=== PATIENT | male | born 1960 | race Caucasian/White ===

== ENCOUNTER → 2016-04-17 | Outpatient (CLI) | payer OTHER ==
[~2016-04-17] MED LIST: ACET325T96 PO; ALBUAER INH; CARB1TAB38 PO; CARB200T PO; CLR10 PO; DEXTSYP41 PO; DIVA125T18 PO; DIVA500T59 PO; FLUO40CA8 PO; FURO-85 PO; IBUP-1450 PO; IMD/2 PO; LEVO75TA5 PO; LTHSR/300 PO; MIRT30TA2 PO; PHEN1TAB86 PO; PHEN64.8 PO; POLY335025 PO; RISP1TAB68 PO; SALI0.6517 NAE; SIMV20TA5 PO; ZNTT/150 PO
[2016-04-17 16:56] LABS: BASO % 0.3 %; BASO ABS # 0.02 K/uL (0-0.2); COMPLETE YES; EOS % 1.4 %; HEMATOCRIT 45.1 % (42-52); IG% 0.2 %; LYMPH % 33.3 %; LYMPH ABS # 1.97 K/uL (1.2-3.4); MEAN CELL VOLUME 95.6 fL (80-100); MEAN CORPUSCULAR HEMOGLOBIN 32.2 pg (25-34); MEAN CORPUSCULAR HGB CONC 33.7 g/dl (32-36); MEAN PLATELET VOLUME 10.5 fL (7.4-10.4); NEUT % 55.8 %; PLATELET COUNT 244 K/uL (130-400); RED BLOOD COUNT 4.72 M/uL (4.7-6.1); WHITE BLOOD COUNT 5.92 K/uL (4.8-10.8)
[2016-04-17 17:16] LABS: ALT/SGPT 26 U/L (12-78); AST/SGOT 10 U/L (15-37); BLOOD UREA NITROGEN 14 mg/dl (7-18); BUN/CREATININE RATIO 14.3 (10-20); CALCIUM 9.2 mg/dl (8.5-10.1); CARBON DIOXIDE 27 mmol/L (21-32); CHLORIDE 105 mmol/L (98-107); CHOLESTEROL 187 mg/dl (0-200); CREATININE 0.97 mg/dl (0.60-1.40); GLUCOSE 101 mg/dl (70-99); POTASSIUM 3.7 mmol/L (3.5-5.1); SODIUM 142 mmol/L (136-145)
[2016-04-17 17:17] LABS: PHENOBARBITAL 33.6 mcg/mL (15.0-40.0)
[2016-04-17 17:26] LABS: ALB/GLOB RATIO 1.1 (0.9-2); ALKALINE PHOSPHATASE 75 U/L (45-117); CHOLESTEROL/HDL RATIO 2.6; HDL CHOLESTEROL 72 mg/dl; LDL CHOLESTEROL CALCULATED 67 mg/dl; TRIGLYCERIDES 239 mg/dl (0-150); VERY LOW DENSITY LIPOPROT CALC 48 mg/dl
== END | disposition home or self-care (01) ==
LOC: C.LABBFT 14:58
PROVIDERS: ATTEND Internal Medicine
DX: R56.9 Unspecified convulsions (principal)

== ENCOUNTER 2016-05-16 20:37 | Emergency (ER) | payer OTHER ==
[~2016-05-16] VITALS: Ht 170.2 cm; Wt 91.5 kg
[~2016-05-16 20:37] MED LIST changes: -CARB1TAB38 PO; -PHEN64.8 PO
[2016-05-16 20:46] VITALS: TEMP 37.5; Ht 170.2 cm; Wt 91.5 kg
[2016-05-16] MEDS ORDERED: CARB1TAB38 PO (21:29)
--- NOTE | 2016-05-16 22:30 | EMERGENCY ROOM VISIT NOTE ---
History Report prepared by Lory: Lai Powers Under the Supervision of: Dr. eDlfin Marrero M.D. First contact with patient: 22:17 Chief Complaint: FALL Stated Complaint: FALL History of Present Illness The patient is a 56 year old male who presents to the Emergency Room with complaints of constant back pain due to a fall beginning just prior to arrival. He currently rates his discomfort as a 3/10 in severity. As per care worker, the patient is a client of [facility]. The care worker states the patient has a seizure disorder, but the patient has not had a known seizure in their vicinity. He states the patient is on seizure medication. The care worker notes the patient was playing [employer], when he fell backwards and hit his head on an end table. He states the patient did not lose consciousness but was not conversing following the incident. The patient denies chest pain, abdominal pain, and leg pain. Source of History: patient Onset: just prior to arrival Position: back Symptom Intensity: 3/10 Timing: constant Associated Symptoms: + back pain, No LOC, No abdominal pain, No chest pain Review of Systems All systems have been listed, reviewed, and are negative other than those previously mentioned. Please see Additional Medical History Sheet. Past Medical & Surgical Medical Problems: (1) Chest pain (2) No pertinent past medical history (3) Seizures Family History No pertinent family history Social History Smoking Status: Never Smoker Marital Status: single Housing Status: other Occupation Status: disabled Current/Historical Medications Scheduled Carbamazepine Extended Release (Tegretol Xr), 400 MG PO TID Divalproex Sodium (Depakote), 125 MG PO BID Divalproex Sodium (Depakote), 500 TAB PO BID Fluoxetine (Prozac), 40 MG PO QAM Furosemide (Lasix), 10 TAB PO DAILY Levothyroxine Sodium (Levothyroxine Sodium), 75 MCG PO DAILY [place] Carbonate ([place] Carbonate), 300 MG PO BID Loratadine (Claritin), 10 MG PO DAILY Mirtazapine Soltab (Remeron Soltab), 30 MG PO HS Phenobarbital (Phenobarbital), 64.8 MG PO BID Ranitidine (Zantac), 150 MG PO BID Saline (Deep Sea Nasal [place]), 2 SPRAY BECKY DAILY Simvastatin (Zocor), 20 MG PO HS Miscellaneous Medications Risperidone (Risperdal), 1 MG PO Allergies Coded Allergies: Grapefruit (Unverified Allergy, Unknown, CONTRAINDICATED WITH MEDICATION, 05/16/16) POLLEN (Verified Allergy, Unknown, SEASONAL ALLERGIES, 05/16/16) Physical Exam Vital Signs Date Time Temp Pulse Resp B/P Pulse Ox O2 Delivery O2 Flow Rate FiO2 05/16/16 23:40 81 20 139/86 95 05/16/16 22:04 78 20 136/84 96 Room Air 05/16/16 20:51 91 18 156/100 93 Room Air 93 147/98 98 153/97 05/16/16 20:46 37.5 98 18 153/97 93 Room Air Physical Exam GENERAL: Patient awake, alert, an in no distress. Patient follows commands. Patient does not appear toxic. Patient is adequately hydrated and well- nourished. SKIN: No erythema, pallor, cyanosis or rash HEENT: Normal head, normocephalic, no tyson signs, no raccoon sign. Pupils equal, reactive to light and accommodation. Ears normal. Oral cavity and posterior pharynx appear normal. Neck: Supple, nontender. LUNGS: Clear to auscultation. No wheezes, no rales, no rhonchi. HEART: No murmurs. No gallops. No rubs ABDOMEN: No masses, no rebound, no hepatomegaly or splenomegaly. BACK: Vague mid thoracic tenderness but no bruising noted. No step-offs. EXTREMITIES: No signs of trauma. No pedal or pretibial edema. No calf or thigh tenderness. NEUROLOGIC: Cranial nerves II-XII within normal limits. No gross motor sensory function deficits. Medical Decision & Procedures ER Provider Diagnostic Interpretation: CT HEAD: No intracranial hemorrhage or mass effect. Redemonstration of subcutaneous nodular density overlying the right periorbital region. Given history of trauma, may represent recurring hematoma. May represent an epidermoid cyst. Correlate with physical exam findings. Radiologist: Jake Bernabe M.D. Study ready at 23:11 and initial results transmitted at 23: 17. Laboratory Results 05/16/16 22:35 05/16/16 22:35 Test 05/16/16 22:35 Red Blood Count 4.40 M/uL (4.7-6.1) Mean Corpuscular Volume 92.5 fL (80-100) Mean Corpuscular Hemoglobin 31.6 pg (25-34) Mean Corpuscular Hemoglobin Concent 34.2 g/dl (32-36) RDW Standard Deviation 45.2 fL (36.4-46.3) RDW Coefficient of Variation 13.3 % (11.5-14.5) Mean Platelet Volume 9.3 fL (7.4-10.4) Anion Gap 8.0 mmol/L (3-11) Est Creatinine Clear Calc Drug Dose 93.8 ml/min Estimated GFR () 102.7 Estimated GFR (Non- 88.6 BUN/Creatinine Ratio 16.4 (10-20) Calcium Level 8.5 mg/dl (8.5-10.1) Valproic Acid (Depakene) Level 71 mcg/ml (50-100) Carbamazepine (Tegretol) Level 5.6 mcg/ml (4-12) [place] Level 0.6 mMOL/L (0.6-1.2) Laboratory results as stated above per my review. ECG Indication: other (fall) Rate (beats per minute): 80 Rhythm: normal sinus Findings: no acute ischemic change, no ectopy ED Course 2219: Past medical records reviewed. The patient was evaluated in room B4A. A complete history and physical examination was performed. 2335: Upon reevaluation, the patient appeared to have improvement of his symptoms. I discussed today's findings with the patient's care worker. He verbalized agreement of the treatment plan. The patient was discharged home. Medical Decision Nurses notes reviewed. Medical history sheet reviewed. Differential diagnosis includes but is not limited to: closed head injury, seizure, metabolic disorder , back contusion. There was no witnessed seizure. But that remains in the differential. Multiple labs and imaging were obtained. Please see above. The patient's CT does not reveal an acute bleed. The questionable hematoma over his right eye is not from any recent trauma. Patient's medication levels appear to be therapeutic. I believe the patient can safely be discharged. Impression Primary Impression: Fall Additional Impressions: Closed head injury Back contusion Scribe Attestation The scribe's documentation has been prepared under my direction and personally reviewed by me in its entirety. I confirm that the note above accurately reflects all work, treatment, procedures, and medical decision making performed by me. Departure Information Dispostion Home / Self-Care Referrals Earl García M.D. (PCP) Forms HOME CARE DOCUMENTATION FORM, IMPORTANT VISIT INFORMATION Patient Instructions My [facility] Additional Instructions Continue all of your current medications as prescribed. Problem Qualifiers
[2016-05-16 22:50] LABS: HEMATOCRIT 40.7 % (42-52); MEAN CELL VOLUME 92.5 fL (80-100); MEAN CORPUSCULAR HEMOGLOBIN 31.6 pg (25-34); MEAN CORPUSCULAR HGB CONC 34.2 g/dl (32-36); MEAN PLATELET VOLUME 9.3 fL (7.4-10.4); PLATELET COUNT 196 K/uL (130-400); WHITE BLOOD COUNT 11.23 K/uL (4.8-10.8)
[2016-05-16 23:13] LABS: BUN/CREATININE RATIO 16.4 (10-20); CALCIUM 8.5 mg/dl (8.5-10.1); CREATININE 0.96 mg/dl (0.60-1.40); POTASSIUM 3.9 mmol/L (3.5-5.1)
[2016-05-16 23:19] LABS: LITHIUM 0.6 mMOL/L (0.6-1.2)
[2016-05-16 23:40] VITALS: BP 139/86; PULSE 81; O2SAT 95
--- NOTE | 2016-05-17 06:32 | DIAGNOSTIC IMAGING REPORT ---
HEAD CT NONCONTRAST CT DOSE: 601.98 mGy.cm HISTORY: Trauma mental status change TECHNIQUE: Multiaxial CT images of the head were performed without the use of intravenous contrast. Comparison: 01/23/2016 Findings: The paranasal sinuses and mastoid air cells are clear. The calvarium and skull base are intact. The ventricles and sulci are within normal limits. There is no mass, hematoma, midline shift, or acute infarct. Impression: No acute intracranial abnormality. Electronically signed by: Jimmie Alvarez M.D. 05/17/2016 6:31 AM Dictated Date/Time: 05/17/2016 6:30 AM
== END 2016-05-16 23:42 | disposition home or self-care (01) ==
LOC: C.EDB 20:37 → EDBD 20:37 → C.EDB 23:42
DX: S09.90XA Unspecified injury of head, initial encounter (principal); S20.229A Contusion of unspecified back wall of thorax, initial encounter; R56.9 Unspecified convulsions; Z79.899 Other long term (current) drug therapy; W18.39XA Other fall on same level, initial encounter; Y93.C2 Activity, hand held interactive electronic device; Y99.8 Other external cause status

== ENCOUNTER → 2016-05-20 | Outpatient (CLI) | payer OTHER ==
[~2016-05-20] MED LIST changes: -ACET325T96 PO; -ALBUAER INH; +CARB1TAB38 PO; -CARB200T PO; -DEXTSYP41 PO; -IBUP-1450 PO; -IMD/2 PO; +PHEN64.8 PO; -POLY335025 PO
== END | disposition home or self-care (01) ==
LOC: C.LABBFT 09:05
PROVIDERS: ATTEND Internal Medicine
DX: R56.9 Unspecified convulsions (principal)

== ENCOUNTER → 2016-08-07 | Outpatient (CLI) | payer OTHER ==
[~2016-08-07] MED LIST changes: -CARB1TAB38 PO; +CARB400T3 PO
== END | disposition home or self-care (01) ==
LOC: C.LABBFT 11:59
PROVIDERS: ATTEND Physician Assistant Medical
DX: Z12.5 Encounter for screening for malignant neoplasm of prostate (principal)

== ENCOUNTER 2016-12-24 02:07 | Emergency (ER) | payer OTHER ==
[~2016-12-24] VITALS: Ht 170.2 cm; Wt 90.3 kg
[~2016-12-24 02:07] MED LIST changes: +CARB1TAB38 PO; -CARB400T3 PO; -PHEN64.8 PO
[2016-12-24 02:08] VITALS: TEMP 36.5; Ht 170.2 cm; Wt 90.3 kg
--- NOTE | 2016-12-24 02:28 | EMERGENCY ROOM VISIT NOTE ---
History Report prepared by Lory: Gary Cotter Under the Supervision of: Dr. Anel Tolnetino M.D. First contact with patient: 02:17 Chief Complaint: FALL Stated Complaint: FALL/L-KNEE PAIN History of Present Illness The patient is a 56 year old male who presents to the Emergency Room after a fall that occurred prior to arrival. The patient states he was using the restroom, and he slipped on his sock on his way back to bed. He reports he fell backward and hit his back, head, and left leg on the floor. The patient notes he was not able to get up on his own. He states once he was helped up, he was able to walk again. The patient reports he has pain in his back and mild knee pain. He denies being on blood thinners, loss of consciousness, and vomiting. The patient notes he has a history of seizures. There was no witnessed seizure activity or LOC by report. The [employer] employee states the patient was coming out of the bathroom when he fell. The pt previously reported to the caregiver that he was lightheaded and hit his hip during the incident. Pt reportedly had a numb leg initially, but was able to ambulate with some help. No loss of bowel or bladder fx. Source of History: patient Onset: prior to arrival Position: other (global) Quality: other (fall) Timing: resolved Associated Symptoms: + back pain, No LOC, No vomiting Note: Associated symptoms: mild knee pain, lightheadedness Review of Systems See HPI for pertinent positives & negatives. A total of 10 systems reviewed and were otherwise negative. Past Medical & Surgical Medical Problems: (1) Chest pain (2) No pertinent past medical history (3) Seizures Family History No pertinent family history Social History Smoking Status: Never Smoker Marital Status: single Housing Status: other Occupation Status: disabled Current/Historical Medications Scheduled Carbamazepine Extended Release (Tegretol Xr), 400 MG PO BID Divalproex Sodium (Depakote), 125 MG PO BID Divalproex Sodium (Depakote), 500 TAB PO BID Fluoxetine (Prozac), 40 MG PO QAM Furosemide (Lasix), 10 TAB PO DAILY Levothyroxine Sodium (Levothyroxine Sodium), 75 MCG PO DAILY [place] Carbonate (Boaz Carbonate), 300 MG PO BID Loratadine (Claritin), 10 MG PO DAILY Mirtazapine Soltab (Remeron Soltab), 30 MG PO HS Phenobarbital (Phenobarbital), 64.8 MG PO BID Ranitidine (Zantac), 150 MG PO BID Risperidone (Risperdal), 1 MG PO HS Saline (Deep Sea Nasal [place]), 2 SPRAY BECKY DAILY Simvastatin (Zocor), 20 MG PO HS Allergies Coded Allergies: Grapefruit (Unverified Allergy, Unknown, CONTRAINDICATED WITH MEDICATION, 12/24/16) POLLEN (Verified Allergy, Unknown, SEASONAL ALLERGIES, 12/24/16) Physical Exam Vital Signs Date Time Temp Pulse Resp B/P (MAP) Pulse Ox O2 Delivery O2 Flow Rate FiO2 12/24/16 03:39 87 20 159/89 97 Room Air 12/24/16 02:08 36.5 87 20 150/97 95 Room Air Physical Exam Vital signs reviewed. General: Well-appearing 56 year old male, in no significant distress. HEENT: No scleral icterus, PERRLA, neck supple. Atraumatic. Cardiovascular: Regular rate and rhythm, no extra sounds. Pulmonary: Clear to auscultation bilaterally, normal work of breathing. Abdomen: Soft, nontender, nondistended, positive bowel sounds. Musculoskeletal: Atraumatic, no peripheral edema. Negative straight leg raise bilaterally. Left lower extremity - Degenerative changes to the knee, non- tender with ROM, no significant ecchymosis or swelling. Back - No lumbar, thoracic, or cervical spine tenderness. No step off or deformity. Pelvis - No pain to strain. Neurologic: Patient awake alert and oriented x 3, full strength in all 4 extremities. Cranial nerves 2 through 12 grossly intact. Skin: Warm, dry, no rash Medical Decision & Procedures ER Provider Diagnostic Interpretation: Radiology results as stated below per my review and radiologist interpretation: Left knee x-ray: no acute fracture, no dislocation, significant degenerative changes. CT HEAD: Comparison: 05/16/16 Small right frontal scalp soft tissue hematoma. No acute intracranial abnormality. No acute calvarial abnormality. Radiologist: Cheo Kirkpatrick MD Study ready at 0311 and initial results transmitted at 0324. ED Course 0236: Past medical records reviewed. The patient was evaluated in room B07. A complete history and physical examination was performed. 0419: Upon reevaluation, the patient appeared to have improvement of his symptoms. I discussed findings with him. He verbalized agreement of the treatment plan. The patient was discharged home. Medical Decision Differential diagnosis: Intracranial injury, cervical spine injury, intrathoracic injury, intra- abdominal injury, musculoskeletal injury. This patient was evaluated and appeared to be in no significant distress. Physical examination is fairly unrevealing. The left knee was mildly tender on exam. There is no evidence of trauma. X-ray of the left knee reveals significant degenerative changes without evidence of acute fracture or dislocation. CT scan of the head was performed due to the inconsistencies in the patient's story and his complaint of posterior head pain. This study is also negative. The patient was advised to use Tylenol as needed for pain. He will follow-up with his physician for reevaluation of the head injury. They will return the patient to the ER for worsening of symptoms or any medical concerns. Head Trauma GCS Score: 15 Impression Primary Impression: Head injury Additional Impression: Fall Scribe Attestation The scribe's documentation has been prepared under my direction and personally reviewed by me in its entirety. I confirm that the note above accurately reflects all work, treatment, procedures, and medical decision making performed by me. Departure Information Dispostion Home / Self-Care Referrals Earl García M.D. (PCP) Forms HOME CARE DOCUMENTATION FORM, IMPORTANT VISIT INFORMATION Patient Instructions ED Head Injury Closed, My [facility] Additional Instructions Diagnosis: Fall, head injury Tylenol 650 mg every 6 hours as needed for pain. Watch for signs of head injury including altered mental status and vomiting. Return to the emergency department immediately for any of the symptoms. Please refer to the head injury handout. Follow-up with your physician for reevaluation within the next week. Return to the ER for worsening of symptoms or any medical concerns. Problem Qualifiers
[2016-12-24] MEDS ORDERED: PHEN64.8 PO (03:20)
[2016-12-24 03:39] VITALS: BP 159/89; PULSE 87; O2SAT 97
--- NOTE | 2016-12-24 06:35 | DIAGNOSTIC IMAGING REPORT ---
HEAD WITHOUT CONTRAST (CT) CLINICAL HISTORY: 56 years-old Male with CHI. Acute head injury. TECHNIQUE: Multiple axial CT images of the head were obtained without contrast. A dose lowering technique was utilized adhering to the principles of ALARA. CT DOSE: 537.48 mGy.cm COMPARISON: CT head 05/16/2016. FINDINGS: No acute intracranial hemorrhage, midline shift, mass, large territorial ischemia or abnormal extra-axial collection. There is mild atrophy. The calvarium is intact. The paranasal sinuses, mastoid air cells, and middle ear cavities are clear. Mild periorbital soft tissue swelling is noted with a 1.4 x 2.1 right supraorbital soft tissue hematoma. IMPRESSION: 1. No acute intracranial abnormality. 2. Mild periorbital soft tissue swelling with small supraorbital hematoma. The above report was generated using voice recognition software. It may contain grammatical, syntax or spelling errors. Electronically signed by: Vinnie Solano M.D. 12/24/2016 6:34 AM Dictated Date/Time: 12/24/2016 6:30 AM
--- NOTE | 2016-12-24 06:46 | DIAGNOSTIC IMAGING REPORT ---
L KNEE 1 OR 2 VIEWS ROUTINE HISTORY: 56 years-old Male Left knee pain, fall acute left knee pain status post fall COMPARISON: Left knee radiographs 01/23/2016 TECHNIQUE: 2 views of the left knee FINDINGS: Bones are osteopenic. Extensive marginal proliferative osteophytosis is seen about the knee, greatest involving the distal femur, patella and patellofemoral joint. Severe tricompartmental osteoarthritis is noted with progression within the medial and lateral compartments from prior study. 2.9 x 1.6 cm calcified structure within the suprapatellar tissues suggest loose body. Moderate joint effusion. There is no acute fracture or dislocation. IMPRESSION: 1. No acute fracture or dislocation. 2. Progressive severe tricompartmental osteoarthritis. 2.9 cm calcified structure within the suprapatellar tissues suggests intra-articular loose body. 3. Moderate joint effusion. 4. Osteopenia. The above report was generated using voice recognition software. It may contain grammatical, syntax or spelling errors. Electronically signed by: Vinnie Solano M.D. 12/24/2016 6:45 AM Dictated Date/Time: 12/24/2016 6:41 AM
== END 2016-12-24 04:05 | disposition home or self-care (01) ==
LOC: EDBD 02:07 → C.EDB 02:09
DX: S09.90XA Unspecified injury of head, initial encounter (principal); W01.198A Fall on same level from slipping, tripping and stumbling with subsequent striking against other object, initial encounter; G40.909 Epilepsy, unspecified, not intractable, without status epilepticus; Z79.899 Other long term (current) drug therapy

== ENCOUNTER → 2017-03-07 | Outpatient (CLI) | payer OTHER ==
[~2017-03-07] MED LIST changes: -CARB1TAB38 PO; +CARB400T3 PO; -PHEN1TAB86 PO; +PHEN64.8 PO
[2017-03-07 12:19] LABS: BASO % 0.4 %; BASO ABS # 0.03 K/uL (0-0.2); COMPLETE YES; HEMATOCRIT 45.7 % (42-52); IG% 0.1 %; LYMPH % 35.9 %; LYMPH ABS # 3.05 K/uL (1.2-3.4); MEAN CELL VOLUME 95.6 fL (80-100); MEAN CORPUSCULAR HEMOGLOBIN 32.2 pg (25-34); MEAN CORPUSCULAR HGB CONC 33.7 g/dl (32-36); MEAN PLATELET VOLUME 9.6 fL (7.4-10.4); MONO % 9.5 %; NEUT % 52.1 %; PLATELET COUNT 253 K/uL (130-400); RED BLOOD COUNT 4.78 M/uL (4.7-6.1)
[2017-03-07 12:44] LABS: ALKALINE PHOSPHATASE 82 U/L (45-117); ALT/SGPT 23 U/L (12-78); AST/SGOT 10 U/L (15-37); BLOOD UREA NITROGEN 13 mg/dl (7-18); BUN/CREATININE RATIO 12.7 (10-20); CALCIUM 9.1 mg/dl (8.5-10.1); CARBON DIOXIDE 29 mmol/L (21-32); CHLORIDE 103 mmol/L (98-107); FERRITIN 62.4 ng/ml (8.0-388.0); GLUCOSE 91 mg/dl (70-99); POTASSIUM 4.9 mmol/L (3.5-5.1); SODIUM 137 mmol/L (136-145)
[2017-03-07 12:49] LABS: ALB/GLOB RATIO 0.8 (0.9-2); TOTAL IRON BINDING CAPACITY 427 mcg/dl (250-450)
== END | disposition home or self-care (01) ==
LOC: C.LABBFT 11:02
PROVIDERS: ATTEND Physician Assistant Medical
DX: F50.89 Other specified eating disorder (principal)

== ENCOUNTER → 2017-03-25 | Outpatient (CLI) | payer OTHER ==
[~2017-03-25] MED LIST changes: +RANI150T85 PO; -ZNTT/150 PO
== END | disposition home or self-care (01) ==
LOC: C.LABBFT 15:03
PROVIDERS: ATTEND Physician Assistant Medical
DX: R76.9 Abnormal immunological finding in serum, unspecified (principal); E03.9 Hypothyroidism, unspecified

== ENCOUNTER → 2017-04-04 | Outpatient (CLI) | payer OTHER ==
[~2017-04-04] MED LIST changes: -RANI150T85 PO; +ZNTT/150 PO
== END | disposition home or self-care (01) ==
LOC: C.LAB1850 14:41
PROVIDERS: ATTEND Physician Assistant Medical
DX: R76.9 Abnormal immunological finding in serum, unspecified (principal)

== ENCOUNTER → 2017-05-21 | Outpatient (CLI) | payer OTHER ==
[~2017-05-21] MED LIST changes: +RANI150T85 PO; -ZNTT/150 PO
[2017-05-21 09:32] LABS: BASO % 0.3 %; BASO ABS # 0.02 K/uL (0-0.2); EOS % 3.1 %; EOS ABS # 0.18 K/uL (0-0.5); HEMATOCRIT 42.3 % (42-52); HEMOGLOBIN 14.1 g/dL (14.0-18.0); LYMPH % 33.7 %; LYMPH ABS # 1.98 K/uL (1.2-3.4); MEAN CELL VOLUME 94.2 fL (80-100); MEAN CORPUSCULAR HEMOGLOBIN 31.4 pg (25-34); MEAN CORPUSCULAR HGB CONC 33.3 g/dl (32-36); MEAN PLATELET VOLUME 9.4 fL (7.4-10.4); MONO % 10.9 %; MONO ABS # 0.64 K/uL (0.11-0.59); NEUT ABS # 3.05 K/uL (1.4-6.5); PLATELET COUNT 245 K/uL (130-400); RED CELL DISTRIBUTION WIDTH CV 13.2 % (11.5-14.5); RED CELL DISTRIBUTION WIDTH SD 45.8 fL (36.4-46.3); WHITE BLOOD COUNT 5.87 K/uL (4.8-10.8)
== END | disposition home or self-care (01) ==
LOC: C.LAB1850 08:32
PROVIDERS: ATTEND Psychiatry & Neurology Psychiatry
DX: F31.81 Bipolar II disorder (principal)

== ENCOUNTER 2017-06-04 20:15 | Emergency (ER) | payer OTHER ==
[~2017-06-04] VITALS: Ht 170.2 cm; Wt 87.4 kg
[2017-06-04 20:19] VITALS: Ht 170.2 cm; Wt 87.4 kg
[2017-06-04 21:23] LABS: BASO % 0.3 %; BASO ABS # 0.02 K/uL (0-0.2); EOS % 1.7 %; EOS ABS # 0.12 K/uL (0-0.5); HEMATOCRIT 42.5 % (42-52); HEMOGLOBIN 14.8 g/dL (14.0-18.0); IG# 0.01 K/uL (0.00-0.02); LYMPH % 24.3 %; LYMPH ABS # 1.73 K/uL (1.2-3.4); MEAN CELL VOLUME 91.6 fL (80-100); MEAN CORPUSCULAR HEMOGLOBIN 31.9 pg (25-34); MEAN CORPUSCULAR HGB CONC 34.8 g/dl (32-36); MEAN PLATELET VOLUME 8.7 fL (7.4-10.4); MONO ABS # 0.57 K/uL (0.11-0.59); NEUT % 65.6 %; NEUT ABS # 4.68 K/uL (1.4-6.5); PLATELET COUNT 234 K/uL (130-400); RED CELL DISTRIBUTION WIDTH CV 13.2 % (11.5-14.5); RED CELL DISTRIBUTION WIDTH SD 44.1 fL (36.4-46.3); WHITE BLOOD COUNT 7.13 K/uL (4.8-10.8)
--- NOTE | 2017-06-04 21:26 | DIAGNOSTIC IMAGING REPORT ---
CT SCAN OF THE BRAIN WITHOUT IV CONTRAST CLINICAL HISTORY: Seizure. COMPARISON STUDY: CT of the brain dated 12/24/2016 and 01/23/2016. TECHNIQUE: Unenhanced axial CT scan of the brain is performed from the vertex to the skull base. A dose lowering technique was utilized adhering to the principles of ALARA. CT DOSE: 537.48 mGy.cm FINDINGS: Brain parenchyma: The brain parenchyma is normal in appearance. There is no hemorrhage, mass effect, or evidence of acute territorial ischemia by CT criteria. Allen-white matter is preserved. No extra-axial fluid collection is seen. Ventricles, sulci, cisterns: Normal in configuration. Intracranial vasculature: The visualized intracranial vasculature at the skull base is normal in appearance. Calvarium: There is no depressed calvarial fracture. Sinuses and mastoids: The visualized paranasal sinuses are clear. The mastoid air cells are well pneumatized. Orbits: The bony orbits are grossly intact. Soft tissues: A 1.5 cm low-attenuation nodule in the right periorbital/suprarenal soft tissues is unchanged from previous. IMPRESSION: 1. There is no hemorrhage, mass effect, or evidence of acute territorial ischemia by CT criteria. 2. An ovoid right periorbital/supraorbital soft tissue nodule is unchanged dating back to 2016 and may represent a sebaceous cyst. Clinical correlation will be essential. Electronically signed by: Richard Goldstein M.D. 06/04/2017 9:25 PM Dictated Date/Time: 06/04/2017 9:22 PM
[2017-06-04 21:44] LABS: ALT/SGPT 23 U/L (12-78); BLOOD UREA NITROGEN 12 mg/dl (7-18); CALCIUM 9.3 mg/dl (8.5-10.1); CARBON DIOXIDE 29 mmol/L (21-32); CREATININE 0.87 mg/dl (0.60-1.40); GLUCOSE 89 mg/dl (70-99); LIPASE 281 U/L (73-393); SODIUM 136 mmol/L (136-145)
[2017-06-04 21:47] LABS: ALKALINE PHOSPHATASE 109 U/L (45-117); AST/SGOT 12 U/L (15-37); TOTAL PROTEIN 8.2 gm/dl (6.4-8.2)
--- NOTE | 2017-06-04 21:52 | DIAGNOSTIC IMAGING REPORT ---
SINGLE VIEW CHEST CLINICAL HISTORY: Atypical chest pain. FINDINGS: An AP, portable, upright chest radiograph is compared to study dated 12/05/2015. The examination is degraded by portable technique and patient rotation. The cardiomediastinal silhouette is unremarkable. There are bibasilar airspace opacities and mild chronic elevation of the right hemidiaphragm. No large pleural effusion is identified. No pneumothorax is seen. The bony thorax is grossly intact. IMPRESSION: Bibasilar airspace opacities likely represent atelectasis. Correlate clinically for evidence of superimposed pneumonia. Electronically signed by: Richard Goldstein M.D. 06/04/2017 9:51 PM Dictated Date/Time: 06/04/2017 9:50 PM
[2017-06-04 22:23] VITALS: BP 122/71; PULSE 73; O2SAT 97
--- NOTE | 2017-06-04 23:01 | EMERGENCY ROOM VISIT NOTE ---
History Report prepared by Lory: Erna Triplett Under the Supervision of: Dr. Christopher Figueroa M.D. First contact with patient: 20:45 Chief Complaint: ALTERED MENTAL STATUS Stated Complaint: ALTERED MENTAL STATUS/POSSIBLE SEIZURE History of Present Illness The patient is a 57 year old male who presents to the Emergency Room with complaints of an episode of altered mental status around 1951 today. The patient resides in a halfway. He was working on a puzzle with the restaurant supervisor this evening. He had been doing well all day today. Around 1951, he started blankly staring at the wall and his whole body seemed to be stiff. He was not responding. This lasted for 4-5 minutes. He seemed slightly confused and diaphoretic afterwards. He currently seems to be back to normal. He does have a history of seizures and is on seizure medications. His medications are controlled by the halfway staff and have been being administered correctly. There have been no adjustments in his medications recently. It has been a while since his last seizure. He was not injured today. He denies any headache, tongue bite, neck pain, fever, leg swelling, or abdominal pain. He has been eating and drinking well. He does not drink alcohol. He has a history of depression. He is not feeling depressed. Source of History: patient, caregiver Onset: 1950 Position: other (constitutional) Quality: other (altered mental status) Timing: other (episodic) Associated Symptoms: + diaphoresis, No fevers, No headache, No neck pain, No abdominal pain Review of Systems See HPI for pertinent positives & negatives. A total of 10 systems reviewed and were otherwise negative. Past Medical & Surgical Medical Problems: (1) Chest pain (2) No pertinent past medical history (3) Seizures Old medical records were reviewed. Nurse's notes were reviewed and I agree with. Family History No pertinent family history Social History Smoking Status: Never Smoker Marital Status: single Housing Status: other Occupation Status: disabled Current/Historical Medications Scheduled Carbamazepine Extended Release (Tegretol Xr), 400 MG PO BID Divalproex Sodium (Depakote), 125 MG PO BID Divalproex Sodium (Depakote), 500 TAB PO BID Fluoxetine (Prozac), 40 MG PO QAM Furosemide (Lasix), 10 TAB PO DAILY Levothyroxine Sodium (Levothyroxine Sodium), 75 MCG PO DAILY [place] Carbonate ([place] Carbonate), 300 MG PO BID Loratadine (Claritin), 10 MG PO DAILY Mirtazapine Soltab (Remeron Soltab), 30 MG PO HS Phenobarbital (Phenobarbital), 64.8 MG PO BID Ranitidine (Zantac), 150 MG PO BID Risperidone (Risperdal), 1 MG PO HS Saline (Deep Sea Nasal [place]), 2 SPRAY BECKY DAILY Simvastatin (Zocor), 20 MG PO HS Allergies Coded Allergies: Grapefruit (Unverified Allergy, Unknown, CONTRAINDICATED WITH MEDICATION, 12/24/16) POLLEN (Verified Allergy, Unknown, SEASONAL ALLERGIES, 12/24/16) Physical Exam Vital Signs Date Time Temp Pulse Resp B/P (MAP) Pulse Ox O2 Delivery O2 Flow Rate FiO2 06/04/17 22:23 73 18 122/71 97 06/04/17 21:26 72 20 135/75 95 Room Air 06/04/17 20:23 79 06/04/17 20:19 78 22 172/89 95 Room Air Physical Exam General: Non-ill appearing middle age male in no acute distress, normal mental status. HEENT: Normal cephalic atraumatic. Pupils are equal round and reactive to light. Extraocular movements are intact. Oropharynx is pink with moist mucous membranes. No swelling of the mouth lips or tongue. Neck: Supple with a midline trachea. No meningeal signs or stiffness, no JVD or bruits. No Stridor. Chest: Clear to auscultation bilaterally. No wheezes or rhonchi. No increased work of breathing. Heart: regular rate and rhythm. Abdomen: Soft nontender, nondistended without rebound guarding or rigidity. Extremities: No cyanosis clubbing or edema. No calf tenderness or assymetry Spine/Back. Non tender to palpation. No CVA tenderness Skin: Good turgor without rashes. Neurologic exam: Cranial nerves two through 12 are intact. Motor and sensation are intact and symmetrical throughout. Medical Decision & Procedures ER Provider Diagnostic Interpretation: X-ray results as stated below per interpretation by me and the radiologist. Radiology results as stated below per my review and radiologist interpretation: SINGLE VIEW CHEST CLINICAL HISTORY: Atypical chest pain. FINDINGS: An AP, portable, upright chest radiograph is compared to study dated 12/05/2015. The examination is degraded by portable technique and patient rotation. The cardiomediastinal silhouette is unremarkable. There are bibasilar airspace opacities and mild chronic elevation of the right hemidiaphragm. No large pleural effusion is identified. No pneumothorax is seen. The bony thorax is grossly intact. IMPRESSION: Bibasilar airspace opacities likely represent atelectasis. Correlate clinically for evidence of superimposed pneumonia. Electronically signed by: Richard Goldstein M.D. 06/04/2017 9:51 PM Dictated Date/Time: 06/04/2017 9:[address] SCAN OF THE BRAIN WITHOUT IV CONTRAST CLINICAL HISTORY: Seizure. COMPARISON STUDY: CT of the brain dated 12/24/2016 and 01/23/2016. TECHNIQUE: Unenhanced axial CT scan of the brain is performed from the vertex to the skull base. A dose lowering technique was utilized adhering to the principles of ALARA. CT DOSE: 537.48 mGy.cm FINDINGS: Brain parenchyma: The brain parenchyma is normal in appearance. There is no hemorrhage, mass effect, or evidence of acute territorial ischemia by CT criteria. Allen-white matter is preserved. No extra-axial fluid collection is seen. Ventricles, sulci, cisterns: Normal in configuration. Intracranial vasculature: The visualized intracranial vasculature at the skull base is normal in appearance. Calvarium: There is no depressed calvarial fracture. Sinuses and mastoids: The visualized paranasal sinuses are clear. The mastoid air cells are well pneumatized. Orbits: The bony orbits are grossly intact. Soft tissues: A 1.5 cm low-attenuation nodule in the right periorbital/suprarenal soft tissues is unchanged from previous. IMPRESSION: 1. There is no hemorrhage, mass effect, or evidence of acute territorial ischemia by CT criteria. 2. An ovoid right periorbital/supraorbital soft tissue nodule is unchanged dating back to 2016 and may represent a sebaceous cyst. Clinical correlation will be essential. Electronically signed by: Richard Goldstein M.D. 06/04/2017 9:25 PM Dictated Date/Time: 06/04/2017 9:22 PM Laboratory Results 06/04/17 21:00 Red Blood Count 4.64, Mean Corpuscular Volume 91.6, Mean Corpuscular Hemoglobin 31.9, Mean Corpuscular Hemoglobin Concent 34.8, Mean Platelet Volume 8.7, Neutrophils (%) (Auto) 65.6, Lymphocytes (%) (Auto) 24.3, Monocytes (%) (Auto) 8.0, Eosinophils (%) (Auto) 1.7, Basophils (%) (Auto) 0.3, Neutrophils # (Auto) 4.68, Lymphocytes # (Auto) 1.73, Monocytes # (Auto) 0.57, Eosinophils # (Auto) 0.12, Basophils # (Auto) 0.02 06/04/17 21:00 Test 06/04/17 21:00 06/04/17 21:11 White Blood Count 7.13 K/uL (4.8-10.8) Red Blood Count 4.64 M/uL (4.7-6.1) Hemoglobin 14.8 g/dL (14.0-18.0) Hematocrit 42.5 % (42-52) Mean Corpuscular Volume 91.6 fL (80-100) Mean Corpuscular Hemoglobin 31.9 pg (25-34) Mean Corpuscular Hemoglobin Concent 34.8 g/dl (32-36) Platelet Count 234 K/uL (130-400) Mean Platelet Volume 8.7 fL (7.4-10.4) Neutrophils (%) (Auto) 65.6 % Lymphocytes (%) (Auto) 24.3 % Monocytes (%) (Auto) 8.0 % Eosinophils (%) (Auto) 1.7 % Basophils (%) (Auto) 0.3 % Neutrophils # (Auto) 4.68 K/uL (1.4-6.5) Lymphocytes # (Auto) 1.73 K/uL (1.2-3.4) Monocytes # (Auto) 0.57 K/uL (0.11-0.59) Eosinophils # (Auto) 0.12 K/uL (0-0.5) Basophils # (Auto) 0.02 K/uL (0-0.2) RDW Standard Deviation 44.1 fL (36.4-46.3) RDW Coefficient of Variation 13.2 % (11.5-14.5) Immature Granulocyte % (Auto) 0.1 % Immature Granulocyte # (Auto) 0.01 K/uL (0.00-0.02) Anion Gap 5.0 mmol/L (3-11) Est Creatinine Clear Calc Drug Dose 100.1 ml/min Estimated GFR () 111.8 Estimated GFR (Non- 96.5 BUN/Creatinine Ratio 13.7 (10-20) Calcium Level 9.3 mg/dl (8.5-10.1) Total Bilirubin 0.2 mg/dl (0.2-1) Direct Bilirubin < 0.1 mg/dl (0-0.2) Aspartate Amino Transf (AST/SGOT) 12 U/L (15-37) Alanine Aminotransferase (ALT/SGPT) 23 U/L (12-78) Alkaline Phosphatase 109 U/L (45-117) Total Protein 8.2 gm/dl (6.4-8.2) Albumin 4.0 gm/dl (3.4-5.0) Lipase 281 U/L (73-393) Valproic Acid (Depakene) Level 16 mcg/ml (50-100) Carbamazepine (Tegretol) Level 5.1 mcg/ml (4-12) Phenobarbital Level 29.5 mcg/mL (15.0-40.0) [place] Level 0.6 mMOL/L (0.6-1.2) Bedside Troponin I < 0.030 ng/ml (0-0.045) Laboratory studies as stated above per my review. ECG Per My Interpretation Indication: altered mental status Rate (beats per minute): 86 Rhythm: normal sinus Findings: no acute ischemic change, no ectopy Comparison ECG Date: 16-May-2016 Change: no significant change ED Course 2045: Past medical records reviewed. The patient was evaluated in room C2B, and a complete history and physical examination were performed. 9003: Upon reevaluation, the patient is feeling better. I discussed the results and treatment plan with him and his dispatch supervisor. They verbalized agreement of the treatment plan. The patient was discharged home. Medical Decision Differentials include, but are not limited to; seizure, arrhythmia, cardiac disease, medication side effect, electrolyte or metabolic abnormality, infection. This patient comes in as described above. He was placed in room C2. He had a brief episode of altered level consciousness which sounds like it was likely seizure. He has a seizure disorder but has not had one for quite some time. He is on multiple seizure and psychiatric medications. he is asymptomatic at present. This came on abruptly ended abruptly. He was observed in the ER seizure precautions were applied. he had no recurrence of symptoms or any seizure-like activity. he has stable vital signs. EKG was unremarkable does not suggest acute coronary syndrome or arrhythmia. He has no acute electrolyte or metabolic abnormalities. CAT scan of his head is unremarkable. he is therapeutic on his phenobarbital and valproic acid. His Depakote level is on the low side however I am not sure if he is taking that for seizures or mood stabilizer as he has both. He is not toxic on his lithium. He has remained stable. I recommend he continue his regular medication follow-up with his regular doctor. They may ultimately need to adjust some of his long-term meds particularly if he has another seizure. He does not drive. He should avoid any activities where if he had a seizure he would hurt himself or others. They are happy to plan and he was discharged to home. Medication Reconcilliation Current Medication List: was personally reviewed by me Blood Pressure Screening Patient's blood pressure: Normal blood pressure Blood pressure disposition: Did not require urgent referral Impression Primary Impression: Seizure Scribe Attestation The scribe's documentation has been prepared under my direction and personally reviewed by me in its entirety. I confirm that the note above accurately reflects all work, treatment, procedures, and medical decision making performed by me. Departure Information Dispostion Home / Self-Care Referrals Earl García M.D. (PCP) Forms HOME CARE DOCUMENTATION FORM, IMPORTANT VISIT INFORMATION Patient Instructions My [facility] Additional Instructions Rest. Drink plenty of fluids. Ensure you take all your normal medications tonight and as directed Return to the ER if: worsening of symptoms, recurrence of symptoms, not acting like self, any new problems or concerns. Call your doctor tomorrow and arrange follow-up.They may want to change some of your long-term medications
== END 2017-06-04 22:24 | disposition home or self-care (01) ==
LOC: EDBD 20:15 → C.EDC 20:16
DX: R56.9 Unspecified convulsions (principal); Z91.018 Allergy to other foods; Z91.09 Other allergy status, other than to drugs and biological substances; Z79.899 Other long term (current) drug therapy

== ENCOUNTER → 2017-06-27 | Outpatient (CLI) | payer OTHER ==
--- NOTE | 2017-06-27 11:35 | EEG Procedure Note ---
EEG Procedure Note Date of Service Jun 27, 2017. Start / End Times Start Time: 9:11 AM End Time: 9:32 AM Referring Physician Eloisa Milligan History This is a 57-year-old male with reported history of seizure. EEG for further evaluation of seizure etiology. Home Medication List Scheduled Carbamazepine Extended Release (Tegretol Xr), 400 MG PO BID Divalproex Sodium (Depakote), 125 MG PO BID Divalproex Sodium (Depakote), 500 TAB PO BID Fluoxetine (Prozac), 40 MG PO QAM Furosemide (Lasix), 10 TAB PO DAILY Levothyroxine Sodium (Levothyroxine Sodium), 75 MCG PO DAILY [place] Carbonate ([place] Carbonate), 300 MG PO BID Loratadine (Claritin), 10 MG PO DAILY Mirtazapine Soltab (Remeron Soltab), 30 MG PO HS Phenobarbital (Phenobarbital), 64.8 MG PO BID Ranitidine (Zantac), 150 MG PO BID Risperidone (Risperdal), 1 MG PO HS Saline (Deep Sea Nasal [place]), 2 SPRAY BECKY DAILY Simvastatin (Zocor), 20 MG PO HS Description This is a 21 electrode EEG with a single channel dedicated to limited EKG. The electrodes were placed in accordance with the International 10-20 system. At the start of the recording the patient was in an awake state. Background was well organized and composed of symmetric mixed alpha and beta frequencies and excess theta frequencies. There was a symmetric well-formed moderate amplitude up to 8-9 Hz posterior dominant rhythm that was reactive to eye opening and closure. Hyperventilation was not done. Intermittent photic stimulation at various frequencies produced no abnormalities. There was no state changes or sleep transients. Interpretation This is a mildly abnormal routine EEG secondary to mild excess generalized theta slowing within the background. There was no electrographic seizures or epileptiform discharges. Clinical Correlation This EEG indicates a mild encephalopathy of nonspecific etiology.
== END | disposition home or self-care (01) ==
LOC: C.NEUR 08:58
PROVIDERS: ATTEND Psychiatry & Neurology Neurology
DX: R56.9 Unspecified convulsions (principal)

== ENCOUNTER 2017-07-04 18:02 | Emergency (ER) | payer OTHER ==
[~2017-07-04] VITALS: Ht 170.2 cm; Wt 84.3 kg
[2017-07-04 18:06] VITALS: TEMP 37; Ht 170.2 cm; Wt 84.3 kg
--- NOTE | 2017-07-04 19:09 | EMERGENCY ROOM VISIT NOTE ---
History Report prepared by Lory: Manjula Velazco Under the Supervision of: Dr. Christopher Figueroa M.D. First contact with patient: 18:43 Chief Complaint: FALL Stated Complaint: FALL History of Present Illness The patient is a 57 year old male who presents to the Emergency Room with complaints of a possible seizure. He said he just fell over. He lives in a mcc and they said when they found him he was twitching on the ground unresponsive this lasted very briefly. He was not postictal and there are no injuries. Initially said he had some back pain but that is better. He did not hit his head. He is on several seizure medications and they recently increased his Depakote to 500 twice a day up from 625 once a day. He has not missed any meds. he had no fever or recent illness. Is not diabetic. He has had no abdominal pain. At present, he denies any symptoms specifically denies chest pain, shortness of breath, numbness weakness, bowel or bladder problems, headache. He did have a recent EEG about a week ago and was nonspecific without any focal seizures. Review of Systems As above. All other systems reviewed were negative unless otherwise stated in history. At least 10 were reviewed Past Medical & Surgical Medical Problems: (1) Chest pain (2) No pertinent past medical history (3) Seizures Old medical records were reviewed. Nurse's notes were reviewed and I agree with. Family History No pertinent family history Social History Smoking Status: Never Smoker Alcohol Use: none Marital Status: single Housing Status: other Occupation Status: disabled Current/Historical Medications Scheduled Carbamazepine Extended Release (Tegretol Xr), 400 MG PO BID Divalproex Sodium (Depakote), 125 MG PO BID Divalproex Sodium (Depakote), 500 TAB PO BID Fluoxetine (Prozac), 40 MG PO QAM Furosemide (Lasix), 10 TAB PO DAILY Levothyroxine Sodium (Levothyroxine Sodium), 75 MCG PO DAILY [place] Carbonate ([place] Carbonate), 300 MG PO BID Loratadine (Claritin), 10 MG PO DAILY Mirtazapine Soltab (Remeron Soltab), 30 MG PO HS Phenobarbital (Phenobarbital), 64.8 MG PO BID Ranitidine (Zantac), 150 MG PO BID Risperidone (Risperdal), 1 MG PO HS Saline (Deep Sea Nasal [place]), 2 SPRAY BECKY DAILY Simvastatin (Zocor), 20 MG PO HS Allergies Coded Allergies: Grapefruit (Unverified Allergy, Unknown, CONTRAINDICATED WITH MEDICATION, 12/24/16) POLLEN (Verified Allergy, Unknown, SEASONAL ALLERGIES, 12/24/16) Physical Exam Vital Signs Date Time Temp Pulse Resp B/P (MAP) Pulse Ox O2 Delivery O2 Flow Rate FiO2 07/04/17 21:34 76 20 155/100 95 Room Air 07/04/17 18:43 80 16 135/75 95 Room Air 07/04/17 18:06 37.0 89 20 149/91 96 Room Air Physical Exam General: Non-ill appearing middle aged male in no acute distress. HEENT: Normal cephalic atraumatic. Pupils are equal round and reactive to light. Extraocular movements are intact. Oropharynx is pink with moist mucous membranes. No swelling of the mouth lips or tongue. Poor dentition. Neck: Supple with a midline trachea. No meningeal signs or stiffness, no JVD or bruits. No Stridor. Chest: Clear to auscultation bilaterally. No wheezes or rhonchi. No increased work of breathing. Heart: regular rate and rhythm. Abdomen: Soft nontender, nondistended without rebound guarding or rigidity. Extremities: No cyanosis clubbing or edema. No calf tenderness or assymetry Spine/Back. Non tender to palpation. No CVA tenderness Skin: Good turgor without rashes. Neurologic exam: Cranial nerves two through 12 are intact. Motor and sensation are intact and symmetrical throughout. Medical Decision & Procedures Laboratory Results 07/04/17 19:00 Red Blood Count 4.27, Mean Corpuscular Volume 93.2, Mean Corpuscular Hemoglobin 31.9, Mean Corpuscular Hemoglobin Concent 34.2, Mean Platelet Volume 9.0, Neutrophils (%) (Auto) 62.6, Lymphocytes (%) (Auto) 24.3, Monocytes (%) (Auto) 10.7, Eosinophils (%) (Auto) 1.8, Basophils (%) (Auto) 0.3, Neutrophils # (Auto ) 4.29, Lymphocytes # (Auto) 1.66, Monocytes # (Auto) 0.73, Eosinophils # (Auto ) 0.12, Basophils # (Auto) 0.02 07/04/17 19:00 Test 07/04/17 19:00 07/04/17 19:06 White Blood Count 6.84 K/uL (4.8-10.8) Red Blood Count 4.27 M/uL (4.7-6.1) Hemoglobin 13.6 g/dL (14.0-18.0) Hematocrit 39.8 % (42-52) Mean Corpuscular Volume 93.2 fL (80-100) Mean Corpuscular Hemoglobin 31.9 pg (25-34) Mean Corpuscular Hemoglobin Concent 34.2 g/dl (32-36) Platelet Count 205 K/uL (130-400) Mean Platelet Volume 9.0 fL (7.4-10.4) Neutrophils (%) (Auto) 62.6 % Lymphocytes (%) (Auto) 24.3 % Monocytes (%) (Auto) 10.7 % Eosinophils (%) (Auto) 1.8 % Basophils (%) (Auto) 0.3 % Neutrophils # (Auto) 4.29 K/uL (1.4-6.5) Lymphocytes # (Auto) 1.66 K/uL (1.2-3.4) Monocytes # (Auto) 0.73 K/uL (0.11-0.59) Eosinophils # (Auto) 0.12 K/uL (0-0.5) Basophils # (Auto) 0.02 K/uL (0-0.2) RDW Standard Deviation 45.7 fL (36.4-46.3) RDW Coefficient of Variation 13.5 % (11.5-14.5) Immature Granulocyte % (Auto) 0.3 % Immature Granulocyte # (Auto) 0.02 K/uL (0.00-0.02) Anion Gap 4.0 mmol/L (3-11) Est Creatinine Clear Calc Drug Dose 86.5 ml/min Estimated GFR () 98.3 Estimated GFR (Non- 84.8 BUN/Creatinine Ratio 8.6 (10-20) Calcium Level 9.0 mg/dl (8.5-10.1) Total Bilirubin 0.2 mg/dl (0.2-1) Direct Bilirubin < 0.1 mg/dl (0-0.2) Aspartate Amino Transf (AST/SGOT) 12 U/L (15-37) Alanine Aminotransferase (ALT/SGPT) 22 U/L (12-78) Alkaline Phosphatase 93 U/L (45-117) Total Protein 7.2 gm/dl (6.4-8.2) Albumin 3.8 gm/dl (3.4-5.0) Lipase 210 U/L (73-393) Valproic Acid (Depakene) Level 26 mcg/ml (50-100) Carbamazepine (Tegretol) Level 6.1 mcg/ml (4-12) Phenobarbital Level 31.2 mcg/mL (15.0-40.0) [place] Level 0.9 mMOL/L (0.6-1.2) Bedside Troponin I < 0.030 ng/ml (0-0.045) Laboratory studies as stated above per my review. Medications Administered Medications (Trade) Dose Ordered Sig/Nay Route Start Time Stop Time Status Last Admin Dose Admin Divalproex Sodium (Depakote Delay Rel Tab) 500 mg NOW ONCE PO 07/04/17 20:30 07/04/17 20:31 DC 07/04/17 20:56 500 MG ECG Per My Interpretation Indication: altered mental status Rate (beats per minute): 77 Rhythm: normal sinus Findings: no acute ischemic change, no ectopy Change: no significant change Change: No significant change compared to 06-04-2017 Normal intervals ED Course 184: Past medical records reviewed. The patient was evaluated in room A4, and a complete history and physical examination were performed. 2024: Dr. Dean wants to increase his Depaktoe to 750 mg. 2030: Depakote Delay Rel Tab 500 mg PO 2126: Upon reevaluation, the patient is agreeable. I discussed the results and treatment plan with him. He verbalized agreement of the treatment plan. The patient was discharged home. Medical Decision Differential diagnosis: Etiologies such as seizure, syncope, trauma, electrolyte or metabolic abnormality, as well as others were entertained. This patient comes in as described above appears placed in room A4. He is here after having what was most likely seizure. He is on multiple seizure meds at present and he is at his normal baseline and there appears to be no injuries. He was not incontinent and did not bite his tongue. IV access established observed in the ER and had no further seizures and he is asymptomatic. I did check multiple blood levels, he is not toxic on his lithium. His Depakote level is on the low side and he is therapeutic on his phenobarbital and his Tegretol. He has no acute electrolyte or metabolic abnormality. He has nothing she has cardiac disease. I did discuss case with Dr. Dean who is on-call for his neurologist. he recommended given extra Depakote here 500 mg and increase his Depakote to 750 twice a day over the weekend and he was given a small prescription for this he should follow-up with his regular doctor neurology this week for recheck and recheck of his levels he should return if: Worsening of symptoms, not acting like self, fever chills, any new problems or concerns. He was happy with the plan and discharged to home. Medication Reconcilliation Current Medication List: was personally reviewed by me Blood Pressure Screening Patient's blood pressure: Normal blood pressure Consults Time Called: 2019 Consulting Physician: Dr. Dean Returned Call: 2024 Dr. Dean wants to increase his Depaktoe to 750 mg. Impression Primary Impression: Seizure Scribe Attestation The scribe's documentation has been prepared under my direction and personally reviewed by me in its entirety. I confirm that the note above accurately reflects all work, treatment, procedures, and medical decision making performed by me. Departure Information Dispostion Home / Self-Care Referrals Earl García M.D. (PCP) Forms HOME CARE DOCUMENTATION FORM, IMPORTANT VISIT INFORMATION Patient Instructions My [facility] Additional Instructions Rest. Drink plenty of fluids Increase your Depakote by 250 mg in the morning and evening for a total 750 mg twice a day Check in with your doctor/neurologist this week and have your levels checked as well Return to the ER over the weekend if: worsening of symptoms, any further seizures or problems, any new problems or concerns
[2017-07-04 19:20] LABS: BASO % 0.3 %; BASO ABS # 0.02 K/uL (0-0.2); EOS % 1.8 %; EOS ABS # 0.12 K/uL (0-0.5); HEMATOCRIT 39.8 % (42-52); HEMOGLOBIN 13.6 g/dL (14.0-18.0); IG# 0.02 K/uL (0.00-0.02); LYMPH % 24.3 %; LYMPH ABS # 1.66 K/uL (1.2-3.4); MEAN CELL VOLUME 93.2 fL (80-100); MEAN CORPUSCULAR HEMOGLOBIN 31.9 pg (25-34); MEAN CORPUSCULAR HGB CONC 34.2 g/dl (32-36); MONO % 10.7 %; MONO ABS # 0.73 K/uL (0.11-0.59); NEUT % 62.6 %; NEUT ABS # 4.29 K/uL (1.4-6.5); PLATELET COUNT 205 K/uL (130-400); RED CELL DISTRIBUTION WIDTH CV 13.5 % (11.5-14.5); RED CELL DISTRIBUTION WIDTH SD 45.7 fL (36.4-46.3); WHITE BLOOD COUNT 6.84 K/uL (4.8-10.8)
[2017-07-04 19:40] LABS: ALBUMIN 3.8 gm/dl (3.4-5.0); ALT/SGPT 22 U/L (12-78); AST/SGOT 12 U/L (15-37); BLOOD UREA NITROGEN 9 mg/dl (7-18); CARBON DIOXIDE 29 mmol/L (21-32); CREATININE 0.99 mg/dl (0.60-1.40); GLUCOSE 93 mg/dl (70-99); LIPASE 210 U/L (73-393); SODIUM 138 mmol/L (136-145)
[2017-07-04 19:44] LABS: ALKALINE PHOSPHATASE 93 U/L (45-117); TOTAL PROTEIN 7.2 gm/dl (6.4-8.2)
[2017-07-04] MEDS ORDERED: DIVALPROEX SODIUM 500 MG DELAY RELEASE TAB PO ONE (20:30)
[2017-07-04 21:34] VITALS: BP 155/100; PULSE 76; O2SAT 95
== END 2017-07-04 21:43 | disposition home or self-care (01) ==
LOC: EDBD 18:02 → C.EDA 18:04
DX: R56.9 Unspecified convulsions (principal); Z79.899 Other long term (current) drug therapy; Z91.018 Allergy to other foods; Z91.048 Other nonmedicinal substance allergy status

== ENCOUNTER → 2017-07-10 | Outpatient (CLI) | payer OTHER | END | disposition home or self-care (01) | LOC: C.LAB1850 08:34 | PROVIDERS: ATTEND Nurse Practitioner | DX: R56.9 Unspecified convulsions (principal) ==

== ENCOUNTER → 2017-07-24 | Outpatient (CLI) | payer OTHER ==
[2017-07-24 15:24] LABS: BASO % 0.3 %; BASO ABS # 0.02 K/uL (0-0.2); EOS ABS # 0.12 K/uL (0-0.5); HEMATOCRIT 41.3 % (42-52); HEMOGLOBIN 14.3 g/dL (14.0-18.0); IG# 0.01 K/uL (0.00-0.02); LYMPH % 45.3 %; LYMPH ABS # 2.67 K/uL (1.2-3.4); MEAN CELL VOLUME 92.2 fL (80-100); MEAN CORPUSCULAR HEMOGLOBIN 31.9 pg (25-34); MEAN CORPUSCULAR HGB CONC 34.6 g/dl (32-36); MEAN PLATELET VOLUME 9.2 fL (7.4-10.4); MONO % 9.5 %; MONO ABS # 0.56 K/uL (0.11-0.59); NEUT % 42.7 %; NEUT ABS # 2.51 K/uL (1.4-6.5); PLATELET COUNT 228 K/uL (130-400); RED CELL DISTRIBUTION WIDTH CV 13.7 % (11.5-14.5); RED CELL DISTRIBUTION WIDTH SD 46.2 fL (36.4-46.3); WHITE BLOOD COUNT 5.89 K/uL (4.8-10.8)
[2017-07-24 15:48] LABS: ALT/SGPT 20 U/L (12-78); AST/SGOT 13 U/L (15-37); BLOOD UREA NITROGEN 19 mg/dl (7-18); CALCIUM 9.2 mg/dl (8.5-10.1); CARBON DIOXIDE 29 mmol/L (21-32); CREATININE 0.97 mg/dl (0.60-1.40); GLUCOSE 92 mg/dl (70-99); POTASSIUM 4.1 mmol/L (3.5-5.1); SODIUM 135 mmol/L (136-145)
[2017-07-24 15:49] LABS: ALKALINE PHOSPHATASE 89 U/L (45-117)
== END | disposition home or self-care (01) ==
LOC: C.LAB 14:48
PROVIDERS: ATTEND Physician Assistant
DX: Z51.81 Encounter for therapeutic drug level monitoring (principal); R56.9 Unspecified convulsions; G40.909 Epilepsy, unspecified, not intractable, without status epilepticus

== ENCOUNTER → 2017-08-04 | Outpatient (CLI) | payer OTHER | END | disposition home or self-care (01) | LOC: C.LABBFT 10:58 | PROVIDERS: ATTEND Physician Assistant Medical | DX: Z51.81 Encounter for therapeutic drug level monitoring (principal); Z12.5 Encounter for screening for malignant neoplasm of prostate; E78.5 Hyperlipidemia, unspecified ==